=== PATIENT | female | born 1990 | race American Indian/Alaskan Native ===

== ENCOUNTER 2019-03-29 18:10 | Emergency (ER) | payer SELFPAY ==
[2019-03-29 18:24] VITALS: BP 122/83
== END 2019-03-29 22:10 | disposition left against medical advice (07) ==
LOC: ED 18:10
DX: R10.30 Lower abdominal pain, unspecified (principal); Z53.21 Procedure and treatment not carried out due to patient leaving prior to being seen by health care provider